=== PATIENT | male | born 1995 | race African-American/Black ===

== ENCOUNTER 2016-09-28 01:11 | Emergency (ER) | payer OTHER ==
[~2016-09-28] VITALS: Ht 162.6 cm; Wt 60.8 kg
[2016-09-28 01:48] LABS: NEG OBC FOB NEG; POS OBC FOB POS
--- NOTE | 2016-09-28 02:14 | PHYS DOC ---
Past Medical History Past Medical History: No Pertinent History Past Surgical History: No Surgical History Alcohol Use: Occasionally Drug Use: Marijuana Adult General Chief Complaint Chief Complaint: RECTAL BLEED HPI HPI Patient is a 21 year old gentleman presents here today secondary to blood in the stool. Patient reports started 1-2 days ago. Patient denies any other symptomatology. Patient has any abdominal pain nausea vomiting diarrhea dysuria frequency urgency dizziness chest pain. Patient has no past medical history. Patient has no hypertension diabetes liver longer kidney problems. Patient denies any history of hemorrhoids. Patient reports he had a similar episode a long time ago and it resolved spontaneously. Patient is not allergic to any medications. Patient's physical exam the ER is unremarkable. Patient's rectal exam reveals no fissures, no hemorrhoids. Patient's rectal exam was heme negative brown stool. Patient had an i-STAT performed which revealed a hemoglobin of 14.3. The rest of his i-STAT was within normal limits. Assessment and plan 21-year-old with bloody stools. Patient is clinically and hemodynamically stable. Patient's H&H is within normal limits. Patient's vital signs are normal. Patient's rectal currently is heme-negative brown stool. Patient be discharged home with recommendation for outpatient follow-up for a outpatient colonoscopy. Review of Systems Review of Systems Constitutional: Denies fever or chills [] Eyes: Denies change in visual acuity, redness, or eye pain [] HENT: Denies nasal congestion or sore throat [] All other review systems are negative except as documented in the history of present illness portion. Allergies Allergies Allergies Coded Allergies Type Severity Reaction Last Updated Verified No Known Drug Allergies 09/28/16 No Physical Exam Physical Exam Constitutional: Well developed, well nourished, no acute distress, non-toxic appearance. [] HENT: Normocephalic, atraumatic, bilateral external ears normal, oropharynx moist, no oral exudates, nose normal. [] Eyes: PERRLA, EOMI, conjunctiva normal, no discharge. [] Neck: Normal range of motion, no tenderness, supple, no stridor. [] Cardiovascular:Heart rate regular rhythm, Lungs & Thorax: Bilateral breath sounds clear to auscultation [] Abdomen: Bowel sounds normal, soft, no tenderness, no masses, no pulsatile masses. [] Skin: Warm, dry, no erythema, no rash. [] Back: No tenderness, no CVA tenderness. [] Extremities: No tenderness, no cyanosis, no clubbing, ROM intact, no edema. [] Neurologic: Alert and oriented X 3, normal motor function, normal sensory function, no focal deficits noted. [] Psychologic: Affect normal, judgement normal, mood normal. [] Rectal exam: Heme-negative brown stool Current Patient Data Vital Signs Vital Signs Date Time Temp Pulse Resp B/P (MAP) Pulse Ox O2 Delivery O2 Flow Rate FiO2 09/28/16 01:26 97.9 64 16 129/76 (93) 98 Room Air 97.9 Lab Values Laboratory Tests Test 09/28/16 01:40 Stool Occult Blood Negative (NEG) EKG EKG [] Radiology/Procedures Radiology/Procedures [] Course & Med Decision Making Course & Med Decision Making Pertinent Labs and Imaging studies reviewed. (See chart for details) [] Dragon Disclaimer Dragon Disclaimer This electronic medical record was generated, in whole or in part, using a voice recognition dictation system. Departure Departure Impression: Primary Impression: Rectal bleeding Disposition: HOME, SELF-CARE Condition: IMPROVED Referrals: NO PCP (PCP) Patient Instructions: Rectal Bleeding Additional Instructions: Your workup in the ER today has been within normal limits. Rectal exam currently reveals no blood. Her hemoglobin level is within normal limits. We recommend that he follow up with your family doctor to get a referral to see a GI specialist to have a colonoscopy performed to help determine the cause of your episodes of bloody stools. FRANCISCO VALLE MD Sep 28, 2016 02:14
[2016-09-28 02:30] VITALS: BP 139/65
[2016-09-28 15:19] LABS: POTASSIUM ISTAT 3.9 mmol/L (3.5-5.0)
== END 2016-09-28 02:38 | disposition home or self-care (01) ==
LOC: MERGE 01:11 → ER 01:11
DX: K62.5 Hemorrhage of anus and rectum (principal); F12.10 Cannabis abuse, uncomplicated
CPT/HCPCS: 80047; 82274; 99283; 99284

== ENCOUNTER 2016-10-02 05:49 | Emergency (ER) | payer OTHER ==
[~2016-10-02] VITALS: Ht 170.2 cm; Wt 68.0 kg
[2016-10-02 06:00] VITALS: BP 128/60
--- NOTE | 2016-10-02 06:22 | PHYS DOC ---
Past Medical History Past Medical History: No Pertinent History Past Surgical History: No Surgical History Smoking: Cigarettes, Greater than 1 pack/day Alcohol Use: Occasionally Drug Use: None Adult General Chief Complaint Chief Complaint: WRIST PAIN [facility] HPI Patient is a pleasant 21-year-old male who sustained a wrist injury on his left wrist after striking a wall and door with his hyperflexed hand. Immediately after the injury he felt a pain in the distal portion of the ulna and radius with localized swelling. He describes pain as throbbing worse with flexion and extension at the wrist described as a 9 of 10. There is no radiation to the elbow upper shoulder. There is no associated numbness or tingling. patient denies any prior injury. Patient is left-hand dominant Review of Systems Review of Systems Constitutional: Denies fever or chills [] Eyes: Denies change in visual acuity, redness, or eye pain [] HENT: Denies nasal congestion or sore throat [] Respiratory: Denies cough or shortness of breath [] Cardiovascular: No additional information not addressed in HPI [] GI: Denies abdominal pain, nausea, vomiting, bloody stools or diarrhea [] : Denies dysuria or hematuria [] Musculoskeletal: His only complaint is left wrist pain Integument: Denies rash or skin lesions [] Neurologic: Denies headache, focal weakness or sensory changes [] Endocrine: Denies polyuria or polydipsia [] Current Medications Current Medications Current Medications Medications (Trade) Dose Ordered Sig/Roxy Start Time Stop Time Status Last Admin Dose Admin Acetaminophen/ Hydrocodone Bitart (Lortab 5/325) 2 tab 1X ONCE 10/02/16 06:30 10/02/16 06:31 DC 10/02/16 06:32 2 TAB Allergies Allergies Allergies Coded Allergies Type Severity Reaction Last Updated Verified No Known Drug Allergies 10/02/16 No Physical Exam Physical Exam Constitutional: Well developed, well nourished, no acute distress, non-toxic appearance. [] Cardiovascular:Heart rate regular rhythm, no murmur [] Lungs & Thorax: Bilateral breath sounds clear to auscuation Skin: Warm, dry, no erythema, no rash. [] Extremities: Patient does have marked tenderness to palpation over the distal radius on the volar surface of the wrist with mild soft tissue swelling. Patient has brisk +2 capillary refill, brisk peripheral pulses at the radial and ulnar arteries. Patient has increased pain sensation over the volar surface of the hand secondary to the injury. He has normal sensation to light touch and proprioception over the C5-T1 disposition of his arm. Patient was patient's strength to flexion and extension at each the DIPs PIPs and MCPs is normal to resistance. Neurologic: Alert and oriented X 3, normal motor function, normal sensory function, no focal deficits noted. [] Psychologic: Affect normal, judgement normal, mood normal. [] Current Patient Data Vital Signs Vital Signs Date Time Temp Pulse Resp B/P (MAP) Pulse Ox O2 Delivery O2 Flow Rate FiO2 10/02/16 06:00 98.3 69 18 128/60 (82) 97 Room Air 98.3 EKG EKG [] Radiology/Procedures Radiology/Procedures [] 3 view x-ray read by me 10/02/2016 at 7:10 AM demonstrates intra-articular fracture of the distal radius with some comminution. The fragments are not . angulated or displaced.x-ray read by Dr Patterson. Course & Med Decision Making Course & Med Decision Making Pertinent Labs and Imaging studies reviewed. (See chart for details) she presents with a hyperflexion injury to the wrist demonstrating intra-articular fracture of the distal radius [] Dragon Disclaimer Dragon Disclaimer This electronic medical record was generated, in whole or in part, using a voice recognition dictation system. Departure Departure Impression: Primary Impression: Wrist injury Additional Impression: Radius fracture Disposition: 01 HOME, SELF-CARE Condition: IMPROVED Referrals: NO PCP (PCP) KARLO WILCOX MD Patient Instructions: Radius Fracture with Rehab[facility] Additional Instructions: Please elevate and ice the wrist to reduce swelling and pain. Please return immediately for any decreased sensation to the wrist itself or hand distal to the injury. There is no evidence of this scaphoid fracture or compartment to him at this time. Given the amount of soft tissue swelling please watch for signs of early compartment syndrome development as described bedside. Please return for any questions or concerns or might have. Scripts Hydrocodone Bit/Acetaminophen (HYDROCODONE-APAP 5-325 ) 1 Each Tablet 1-2 TAB PO PRN Q6HRS Y for PAIN for 5 Days, #10 TAB 0 Refills Prov: LUANN PATTERSON MD 10/02/16 Problem Qualifiers LUANN PATTERSON MD Oct 02, 2016 06:22
[2016-10-02] MEDS ORDERED: HYDROcodone/APAP 5/325MG 1 TAB TABLET PO ONE (06:30)
[2016-10-02] MEDS ORDERED: HYDR-2758 PO (07:34)
--- NOTE | 2016-10-02 07:38 | RAD ---
Indication pain. AP oblique and lateral views of the left wrist were obtained. There is a nondisplaced, traumatic, fracture of the distal radius extending to the articular surface. No additional bony abnormality is seen
== END 2016-10-02 08:26 | disposition home or self-care (01) ==
LOC: ER 05:49
DX: S52.502A Unspecified fracture of the lower end of left radius, initial encounter for closed fracture (principal); F17.210 Nicotine dependence, cigarettes, uncomplicated; W22.01XA Walked into wall, initial encounter; Y93.89 Activity, other specified; Y92.89 Other specified places as the place of occurrence of the external cause; Y99.8 Other external cause status
CPT/HCPCS: 29125; 73110; 99284-25